=== PATIENT | male | born 1955 | race Caucasian/White ===

== ENCOUNTER 2019-06-27 19:59 | Emergency (ER) | payer MEDICAID ==
[~2019-06-27] VITALS: Ht 172.7 cm; Wt 78.0 kg
[2019-06-27 20:00] VITALS: BP_SYST 135
--- NOTE | 2019-06-27 20:00 | NUR ---
Patient to ER bed 3 to gown for evaluation. Side rails up.
--- NOTE | 2019-06-27 20:05 | NUR ---
Note adele in EDM - 06/27/19 at 2018 by HARDEEP Placed in room 3 . Placed on hospital monitor, blood pressure machine and pulse oximeter. To gown for exam. Side rails up. Report given to Julianne ROJAS.
--- NOTE | 2019-06-27 20:10 | NUR ---
ER at bedside examining patient.
--- NOTE | 2019-06-27 20:20 | NUR ---
PT came to the ED for HX of htn for SOB with non-productive, dry cough for 5 days. Reports that cough is worse at night. Reports he has chest pain only when coughin and chills. Reports that he is allergic to robitussin. Denies n/v/d or fever. No other complaints/injuries noted. Will cont. to monitor.
[2019-06-27 21:10] LABS: HEMATOCRIT 40.4 % (36-54); HEMOGLOBIN 13.9 g/dL (14.0-18.0); MEAN CORPUSCULAR HEMOGLOBIN 33 pg (27-31); MEAN CORPUSCULAR VOLUME 94 fL (79.0-98.0); RED BLOOD CELL COUNT(AUTO) 4.29 MIL/uL (4.2-6.2); WHITE BLOOD COUNT (AUTO) 7.7 K/uL (4.8-10.8)
[2019-06-27 21:11] LABS: BASOPHILS % (AUTO) 0.3 % (0.0-2.0); EOSINOPHILS % (AUTO) 1.3 % (0.0-4.0); LYMPHOCYTES # (AUTO) 1.1 K/uL (1.0-5.5); LYMPHOCYTES % (AUTO) 14.3 % (20.5-51.5); MEAN CORPUSCULAR HGB CONC 35 % (32-36); MONOCYTES % (AUTO) 6.9 % (1.7-9.3); NEUTROPHILS % (AUTO) 77.2 % (40.0-70.0); PLATELET COUNT (AUTO) 295 K/uL (130-430); RED CELL DISTRIBUTION WIDTH 13.6 % (9.0-15.0)
[2019-06-27 21:12] LABS: EOSINOPHILS # (AUTO) 0.1 K/uL (0.0-0.4); MONOCYTES # (AUTO) 0.5 K/uL (0.0-1.0)
[2019-06-27 21:15] LABS: GLUCOSE 95 mg/dL (70-99)
[2019-06-27 21:16] LABS: ALBUMIN 3.8 g/dL (3.4-4.8); ANION GAP 13 (5-15); CALCIUM 9.8 mg/dL (8.4-11.0); CHLORIDE 97 mmol/L (98-107); CREATININE 1.31 mg/dL (0.55-1.30); GFR AFRICAN AMERICAN 72 mL/min (>90); POTASSIUM 3.9 mmol/L (3.5-5.1); SODIUM SERUM 135 mmol/L (136-145); UREA NITROGEN, BLOOD 30 mg/dL (8-21)
[2019-06-27 21:30] LABS: ALANINE AMINOTRANSFERASE 20 U/L (12-78); ASPARTATE AMINOTRANSFERASE 29 U/L (10-37)
[2019-06-27 21:41] LABS: TOTAL BILIRUBIN 0.7 mg/dL (0.0-1.0)
--- NOTE | 2019-06-27 22:00 | NUR ---
Pts daughter came to nurses station and states, "Can you hurry it up, i have work tomorrow and this is our bedtime." ER made aware.
[2019-06-27] MEDS: AZITHROMYCIN 250 MG TABLET PO ONE (22:12)
[2019-06-27] MEDS: methylPREDNISolone SOD SUCC/PF 62.5 MG/ML VIAL IM ONE (22:12)
--- NOTE | 2019-06-27 22:14 | NUR ---
RT at bedside for breathing TX.
[2019-06-27] MEDS: IPRATROPIUM/ALBUTEROL SULFATE 3 ML AMPUL.NEB (DUONEB) INH ONE (22:20)
[2019-06-27] MEDS: BENZONATATE 100 MG CAPSULE (TESSALON) PO ONE (22:52)
[2019-06-27 23:21] VITALS: BP_SYST 135
--- NOTE | 2019-06-27 23:21 | NUR ---
Patient given written and verbal discharge instructions and verbalizes understanding. ER MD Dr. zacarias discussed with patient the results and treatment provided. Patient in stable condition. ID arm band removed. IV catheter removed intact and dressing applied, no active bleeding. Rx of tessalon perles and albuterol given. Patient educated on pain management and to follow up with PMD. Pain Scale 0/10. Opportunity for questions provided and answered. Medication side effect fact sheet provided.
== END 2019-06-27 23:21 | disposition home or self-care (01) ==
LOC: SED 19:59
DX: J20.9 Acute bronchitis, unspecified (principal); J44.0 Chronic obstructive pulmonary disease with (acute) lower respiratory infection; I10 Essential (primary) hypertension; F17.210 Nicotine dependence, cigarettes, uncomplicated
CPT/HCPCS: 36415; 71045; 80053; 83880; 84484; 85025; 93005; 94640; 99284; J7620